=== PATIENT | female | born 1965 ===

== ENCOUNTER 2018-10-19 09:01 | Emergency (ER) | payer BC, MEDICAID ==
[2018-10-19 09:30] VITALS: O2SAT 99
--- NOTE | 2018-10-19 10:40 | C.PDOC ---
Time Seen by Provider: 10/19/18 09:19 Chief Complaint (Nursing): Eye Problem Past Medical History Vital Signs: Last Vital Signs Temp 98 F 10/19/18 09:16 Pulse 60 10/19/18 09:16 Resp 18 10/19/18 09:16 BP 127/54 L 10/19/18 09:16 Pulse Ox 99 10/19/18 09:16 - Medical History PMH: HTN, Hyperlipidemia - Social History Hx Alcohol Use: No Hx Substance Use: No ED Course And Treatment O2 Sat by Pulse Oximetry: 99 Disposition - Disposition Referrals: Angelo Lund MD [Staff Provider] - Disposition: HOME/ ROUTINE Disposition Time: 10:40 Condition: STABLE Additional Instructions: Follow up with the medical doctor within 1-2 days. Return if worsened. Prescriptions: Ibuprofen [Motrin] 1 tab PO TID PRN #30 tab PRN Reason: Pain Instructions: Subconjunctival Hemorrhage Forms: [facility] (Yoruba) Print Language: ICELANDIC - Clinical Impression Clinical Impression: Subconjunctival hemorrhage, Cervical radiculopathy
[2018-10-19 11:01] VITALS: BP 128/52; PULSE 62; RESP 16; TEMP 98.1
--- NOTE | 2018-10-19 11:23 | C.PDOC ---
History Of Present Illness 53 years old female with PMHx of diabetes, hyperlipidemia presents to ED for evaluation of left eye redness. Denies any injuries to the eye, vision changes, chest pain, or shortness of breath. Patient states she wears glasses but not contact lenses. She also complains of tingling sensation of her fingers that began yesterday. Time Seen by Provider: 10/19/18 09:19 Chief Complaint (Nursing): Eye Problem History Per: Patient History/Exam Limitations: no limitations Onset/Duration Of Symptoms: Hrs Current Symptoms Are (Timing): Still Present Injury To Eye?: No Wears Contact Lens?: No Associated Symptoms: denies: Pain, Decreased Vision, Swelling, FB Sensation, Itching, Discharge From Eye Recent travel outside of the [place]: No Past Medical History Reviewed: Historical Data, Nursing Documentation, Vital Signs Vital Signs: Last Vital Signs Temp 98 F 10/19/18 09:16 Pulse 60 10/19/18 09:16 Resp 18 10/19/18 09:16 BP 127/54 L 10/19/18 09:16 Pulse Ox 99 10/19/18 09:16 - Medical History PMH: HTN, Hyperlipidemia Surgical History: No Surg Hx Family History: States: No Known Family Hx - Social History Hx Alcohol Use: No Hx Substance Use: No Review Of Systems Constitutional: Negative for: Fever, Chills Eyes: Positive for: Redness. Negative for: Pain, Vision Change Cardiovascular: Negative for: Chest Pain Respiratory: Negative for: Shortness of Breath Neurological: Positive for: Other (Tingling sensaton of fingers ). Negative for: Weakness, Numbness Physical Exam - Physical Exam Appears: Well, Non-toxic, No Acute Distress Skin: Normal Color, Warm, Dry, No Rash Head: Atraumatic, Normacephalic Eye(s): bilateral: PERRL, EOMI, left: Other (subconjunctival hemorrhage on medial aspect of eye) Ear(s): Bilateral: Normal Oral Mucosa: Moist Neck: Normal ROM, No Midline Cervical Tenderness, Paracervical Tenderness, Supple Lymphatic: Normal Exam Chest: Symmetrical, No Tenderness Cardiovascular: Rhythm Regular, No Friction Rub, No Murmur, No JVD Respiratory: Normal Breath Sounds, No Rales, No Rhonchi, No Stridor, No Wheezing Extremity: Normal ROM, No Swelling Neurological/Psych: Oriented x3, Normal Speech, Normal Cognition, Normal Cranial Nerves, Normal Motor, Normal Sensation Gait: Steady ED Course And Treatment O2 Sat by Pulse Oximetry: 99 (RA) Pulse Ox Interpretation: Normal Disposition - Disposition Referrals: Angelo Lund MD [Staff Provider] - Disposition: HOME/ ROUTINE Disposition Time: 10:15 Condition: STABLE Additional Instructions: Follow up with the medical doctor within 1-2 days. Return if worsened. Prescriptions: Ibuprofen [Motrin] 1 tab PO TID PRN #30 tab PRN Reason: Pain Instructions: Subconjunctival Hemorrhage Forms: [employer] (Welsh) Print Language: LUXEMBOURGISH - Clinical Impression Clinical Impression: Subconjunctival hemorrhage, Cervical radiculopathy - PA / [employer] / Resident Statement MD/DO has reviewed & agrees with the documentation as recorded. - Scribe Statement The provider has reviewed the documentation as recorded by the Scribe Alexy Mcgee All medical record entries made by the Scribe were at my direction and personally dictated by me. I have reviewed the chart and agree that the record accurately reflects my personal performance of the history, physical exam, medical decision making, and the department course for this patient. I have also personally directed, reviewed, and agree with the discharge instructions and disposition.
--- NOTE | 2018-10-21 20:55 | CARD ---
APPROVED REPORT Date of service: 10/19/2018 EKG Measurement Heart [id number] <Conclusion> Sinus bradycardia Otherwise normal ECG
== END 2018-10-19 11:00 | disposition home or self-care (01) ==
LOC: C.ER 09:01
DX: M54.12 Radiculopathy, cervical region (principal); H11.32 Conjunctival hemorrhage, left eye; E11.9 Type 2 diabetes mellitus without complications; I10 Essential (primary) hypertension; E78.5 Hyperlipidemia, unspecified